=== PATIENT | female | born 1970 | race Two or more races ===

== ENCOUNTER 2020-09-22 08:48 | Outpatient (CLI) | payer OTHER | END 2020-09-22 08:53 | disposition home or self-care (01) | LOC: SONOGRAMA 08:48 → MAMO-SONO 09:20 | PROVIDERS: ATTEND Obstetrics & Gynecology Gynecology | DX: D25.0 Submucous leiomyoma of uterus (principal); N84.0 Polyp of corpus uteri; N92.1 Excessive and frequent menstruation with irregular cycle; R10.2 Pelvic and perineal pain ==

== ENCOUNTER 2020-11-21 07:57 | Day surgery (SDC) | payer OTHER ==
[~2020-11-21 07:57] MED LIST: CLONAZEPAM2 M1 PO; LEVOTHYROXINE25 MCG PO; RESTORIL30 M1 PO; SIMVASTATIN10 MG PO; WELLBUTRIN XL300 MG PO
[2020-11-21] MEDS ORDERED: IBU600 MG PO (11:50)
== END 2020-11-21 16:35 | disposition home or self-care (01) ==
LOC: CIR.AMB 07:57
PROVIDERS: ATTEND Obstetrics & Gynecology Gynecology
DX: N84.0 Polyp of corpus uteri (principal); N84.1 Polyp of cervix uteri; Z20.822 Contact with and (suspected) exposure to COVID-19

== ENCOUNTER 2021-09-23 00:29 | Inpatient (IN) | payer OTHER ==
[~2021-09-23] VITALS: Ht 165.1 cm; Wt 60.3 kg
[~2021-09-23 00:29] MED LIST changes: +IBU600 MG PO
--- NOTE | 2021-09-23 00:41 | NUR ---
PATIENT IS RECIEVED SAYING THAT SHE SUSPECTS TO BE HAVING AN ALLERGIC REACTION TO PYRIDIUM AND BACTRIM DS, WHICH SHE WAS PERSCRIBED FOR CYSTITIS.
--- NOTE | 2021-09-23 02:50 | NUR ---
SE RECIBE PTE EVALUADA POR DR. JOHNSON, QUIEN HACE TX MEDICO. SE EXPLICA TX MEDICO A PTE Y LA MISMA VERBALIZA ENTENDER. SE ADMINISTRAN MEDICAMENTOS Y SE ELVIE MUESTRAS DE LABORATORIO BAJO MEDIDAS ASEPTICAS Y ESTERILES. SE CANALIZA PTE EN ANTEBRAZO CON ANGIO #20, EL MISMO ESTA ANNE DE EDEMA Y ERITEMA. SE FADUMO PTE EN RAMAN 9 CON BARANDAS ELEVADAS, ESPERANDO RESULTADOS DE LABORATORIO PARA REEVALUACION MEDICA.
--- NOTE | 2021-09-23 07:34 | NUR ---
SE REECIBE PTE FEMEINA DE 51 YRS ALERTA CONCIENTE Y TRANQUILA EN COMPANIA DE FAMILAIR. PTE EN ESPERA DE RESULTADO FDE CT SCAN. SE MANTIENE BAJO OBSERVACION.
== END 2021-09-26 14:39 | disposition home or self-care (01) | DRG 690 ==
LOC: ER 00:29 → SURG 14:23
PROVIDERS: ADMIT Internal Medicine; ATTEND Internal Medicine
PROC: BW21ZZZ Computerized Tomography (CT Scan) of Abdomen and Pelvis (ICD-10-PCS; principal; 2021-09-23)
DX: N39.0 Urinary tract infection, site not specified (principal); N12 Tubulo-interstitial nephritis, not specified as acute or chronic; R31.9 Hematuria, unspecified; E03.8 Other specified hypothyroidism; E78.49 Other hyperlipidemia; Z20.822 Contact with and (suspected) exposure to COVID-19